=== PATIENT | female | born 1975 | race Two or more races ===

== ENCOUNTER → 2021-05-25 | Outpatient (CLI) | payer OTHER ==
[~2021-05-25] VITALS: Ht 167.6 cm; Wt 134.7 kg
[~2021-05-25] MED LIST: NORMAL SALINE IV ONE; SINCALIDE IV ONE
--- NOTE | 2021-05-25 10:35 | RAD ---
EXAM: HEPATOBILIARY SCINTIGRAPHY WITH GALLBLADDER EJECTION FRACTION CALCULATION. HISTORY: Right upper quadrant and epigastric pain. TECHNIQUE: 5.4 mCi technetium-99m Choletec were administered intravenously and scintigraphic images o f the abdomen obtained. After filling of the gallbladder, 2.69 mcg of sincalide were infused and the gallbladder ejection fraction calculated. FINDINGS: There is prompt hepatic clearance of tracer from the blood pool. There is homogeneous distr ibution throughout the liver. There is normal filling of the gallbladder and clearance into the bilia ry tree and small bowel. The gallbladder ejection fraction is 98% (normal >35%). IMPRESSION: 1. Normal gallbladder ejection fraction. Electronically signed by: Juan David Elizabeth MD (05/25/2021 10:32 AM) [facility]
== END ==
LOC: NM 08:25
PROVIDERS: ATTEND Physician Assistant
DX: R10.11 Right upper quadrant pain (principal); R10.13 Epigastric pain
CPT/HCPCS: 78227; A9537; J2805